=== PATIENT | female | born 1940 | race Caucasian/White ===

== ENCOUNTER → 2017-06-18 | Outpatient (CLI) | payer MEDICARE, OTHER ==
[~2017-06-18] MED LIST: CELE200; Dyazide 37.5-21 EACH PO; HYDPAM25 PO; LEVSOD50 PO; MECL25 PO; NAPR500 PO
== END | disposition home or self-care (01) ==
LOC: LAB SHORT 10:06 → PLD 10:06
DX: C44.41 Basal cell carcinoma of skin of scalp and neck (principal)
CPT/HCPCS: 88305

== ENCOUNTER 2017-06-26 06:19 | Observation (INO) | payer MEDICARE, OTHER ==
[~2017-06-26] VITALS: Ht 157.5 cm; Wt 60.2 kg
[~2017-06-26 06:19] MED LIST changes: -Dyazide 37.5-21 EACH PO; -HYDPAM25 PO; -LEVSOD50 PO; -NAPR500 PO
[2017-06-26] MEDS ORDERED: LEVSOD50 PO (06:48)
[2017-06-26] MEDS ORDERED: NAPR500 PO (06:49)
[2017-06-26] MEDS ORDERED: HYDPAM25 PO (06:49)
[2017-06-26 06:53] LABS: Source, Urine Clean Catch
[2017-06-26 07:02] LABS: BASOPHILS ABSOLUTE AUTO 0.01 K/mm3 (0.00-0.23); BASOPHILS PERCENT AUTO 0 % (0-2); EOSINOPHILS ABSOLUTE AUTO 0.01 K/mm3 (0.00-0.68); EOSINOPHILS PERCENT AUTO 0 % (0-6); Hematocrit 40.2 % (33.0-51.0); IMMATURE GRAN ABSOLUTE AUTO 0.01 K/mm3 (0.00-0.10); IMMATURE GRAN PERCENT AUTO 0 % (0-1); LYMPHOCYTES ABSOLUTE AUTO 1.49 K/mm3 (0.84-5.20); LYMPHOCYTES PERCENT AUTO 20 % (21-46); MONOCYTES ABSOLUTE AUTO 0.28 K/mm3 (0.16-1.47); MONOCYTES PERCENT AUTO 4 % (4-13); Mean Corpuscular HGB 27.5 pg (26.0-34.0); Mean Corpuscular HGB Conc 32.3 g/dL (31.5-36.5); Mean Corpuscular Volume 85 fL (80-100); Mean Platelet Volume 9.6 fL (9.1-12.4); NEUTROPHILS ABSOLUTE AUTO 5.76 K/mm3 (1.96-9.15); NEUTROPHILS PERCENT AUTO 76 % (41-73); Platelet Count 186 K/mm3 (150-400); RDW Coefficient Variation 13.7 % (11.7-14.2); RDW Standard Deviation 42.9 fL (35.1-46.3); Red Blood Cell Count 4.73 M/mm3 (3.80-5.20); White Blood Cell Count 7.56 K/mm3 (4.00-11.30)
[2017-06-26 07:11] LABS: Bilirubin, Urine Neg (Neg); Blood, Urine 3+ (Neg); Glucose Qualitative, Urine Neg (Neg); Ketones, Urine 1+ (Neg); Leukocyte Esterase, Urine 2+ (Neg); Nitrite, Urine Neg (Neg); Protein, Urine 1+ (Neg); Specific Gravity, Urine 1.025 (1.003-1.022); Urobilinogen, Urine NORM (Normal)
[2017-06-26 07:26] LABS: Albumin, Blood 3.1 g/dL (3.4-5.0); Albumin/Globulin Ratio 0.8 (0.8-1.8); Bilirubin, Total 1.1 mg/dL (0.1-1.0); Bun/Creatinine Ratio 14.6 (12.0-20.0); Calcium, Blood 8.4 mg/dL (8.5-10.1); Creatinine, Blood 0.96 mg/dL (0.40-1.00); Potassium, Blood 3.7 mmol/L (3.5-5.5); Total Protein, Blood 7.1 g/dL (6.4-8.2)
[2017-06-26 07:29] LABS: Appearance, Urine Hazy (Clear); Color, Urine Yellow (P-Yellow); Hyaline Casts 0-2 /lpf (0-2); Mucus Light (0-Heavy)
[2017-06-26 07:30] LABS: Bacteria Few /hpf; Red Blood Cells, Urine 0-2 /hpf (0-2)
[2017-06-26 07:30] LABS: Thyroid Stimulating Hormone 1.05 uIU/mL (0.360-4.800)
[2017-06-26 07:36] LABS: Squamous Epithelial Cells Few /hpf (Few)
[2017-06-26 07:37] LABS: Transitional Epithelial Cells Rare /hpf (0-Rare)
[2017-06-26] MEDS ORDERED: Dyazide 37.5-21 EACH PO (09:36)
[2017-06-27] MEDS ORDERED: METR500 PO (12:31)
[2017-06-27] MEDS ORDERED: CIPR500 PO (12:31)
[2017-06-27] MEDS ORDERED: Percocet 5-3251 EACH PO (12:32)
== END 2017-06-27 13:45 | disposition home or self-care (01) ==
LOC: ER 06:19 → SURS 06:20
PROVIDERS: Emergency Medicine; Surgery
PROC: 0DTJ4ZZ Resection of Appendix, Percutaneous Endoscopic Approach (ICD-10-PCS; principal; 2017-06-26 12:00)
DX: K35.80 Unspecified acute appendicitis (principal); E03.9 Hypothyroidism, unspecified; H81.09 Meniere's disease, unspecified ear; Z88.0 Allergy status to penicillin; Z79.899 Other long term (current) drug therapy
CPT/HCPCS: 36415; 71045; 74176; 80053; 81001; 83690; 84443; 85025; 87086; 88304; 93005; 93010; 96361; 96365; 96366; 96375; 96376; 99285; G0378; J0697; J1885; J2250; J2405; J2710; J3010; J7030; J7120

== ENCOUNTER → 2018-04-13 | Outpatient (CLI) | payer MEDICARE, OTHER ==
[~2018-04-13] MED LIST changes: +CIPR500 PO; +Dyazide 37.5-21 EACH PO; +HYDPAM25 PO; +LEVSOD50 PO; +METR500 PO; +NAPR500 PO; +Percocet 5-3251 EACH PO
== END | disposition home or self-care (01) ==
LOC: PLD 10:57 → LAB SHORT 10:57
DX: C44.41 Basal cell carcinoma of skin of scalp and neck (principal)
CPT/HCPCS: 88305

== ENCOUNTER → 2018-09-28 | Outpatient (CLI) | payer MEDICARE, OTHER ==
[2018-09-28 13:07] LABS: Stool Occult Bld Immuno 1 Negative (NEGATIVE); Stool Occult Bld Immuno 2 Negative (NEGATIVE)
== END | disposition home or self-care (01) ==
LOC: LAB SHORT 11:09 → LAB 11:09 → LAB FUT 09-17 09:00
PROVIDERS: Internal Medicine Gastroenterology
DX: K57.30 Diverticulosis of large intestine without perforation or abscess without bleeding (principal); Z86.010 Personal history of colon polyps
CPT/HCPCS: 82274

== ENCOUNTER 2019-07-18 12:31 | Day surgery (SDC) | payer MEDICARE, OTHER ==
[~2019-07-18] VITALS: Ht 152.4 cm; Wt 59.0 kg
[~2019-07-18 12:31] MED LIST changes: +ANTACID ULTRA1177 MG PO; +BIOTIN1 MG; +DYAZIDE 37.5-21 EACH PO; +EYE VITAMIN; +FLAX PO; +LEVSOD75 PO; +Natrol Alpha 3300 MG PO; +RALO60 PO; +TURMERIC; +VITAMIN D350 MCG
== END 2019-07-18 14:45 | disposition home or self-care (01) ==
LOC: ORSCSDS 12:31
PROVIDERS: Internal Medicine Gastroenterology
PROC: 0DJD8ZZ Inspection of Lower Intestinal Tract, Via Natural or Artificial Opening Endoscopic (ICD-10-PCS; principal; 2019-07-18 13:45)
DX: Z12.11 Encounter for screening for malignant neoplasm of colon (principal); Z86.010 Personal history of colon polyps; K57.30 Diverticulosis of large intestine without perforation or abscess without bleeding; I10 Essential (primary) hypertension; E78.5 Hyperlipidemia, unspecified; E03.9 Hypothyroidism, unspecified; Z79.899 Other long term (current) drug therapy
CPT/HCPCS: J2704; J7120

== ENCOUNTER 2021-07-30 12:01 | Day surgery (SDC) | payer MEDICARE, OTHER ==
[~2021-07-30] VITALS: Ht 152.4 cm; Wt 58.6 kg
--- NOTE | 2021-07-30 12:45 | NUR ---
07/30/21 1245 Katie Dalal CALL LIGHT WITHIN REACH. [place] AT 1241 PLEBRYAN AT 1244 IN THE LEFT EYE
== END 2021-07-30 14:29 | disposition home or self-care (01) ==
LOC: ORSCSDS 12:01
PROVIDERS: Ophthalmology
PROC: 08RK3JZ Replacement of Left Lens with Synthetic Substitute, Percutaneous Approach (ICD-10-PCS; principal; 2021-07-30 13:30)
DX: H25.13 Age-related nuclear cataract, bilateral (principal); H40.1122 Primary open-angle glaucoma, left eye, moderate stage; E03.9 Hypothyroidism, unspecified; I10 Essential (primary) hypertension; F41.9 Anxiety disorder, unspecified; H81.09 Meniere's disease, unspecified ear; Z79.899 Other long term (current) drug therapy
CPT/HCPCS: J2250; J3010; J3301; J7040; V2632

== ENCOUNTER 2021-08-15 07:21 | Day surgery (SDC) | payer MEDICARE, OTHER ==
[~2021-08-15] VITALS: Ht 152.4 cm; Wt 57.9 kg
[2021-08-15] MEDS ORDERED: TIMDOROPSO (07:51)
[2021-08-15] MEDS ORDERED: LATA.005SO (07:52)
== END 2021-08-15 09:33 | disposition home or self-care (01) ==
LOC: ORSCSDS 07:21
PROVIDERS: Ophthalmology
PROC: 08RJ3JZ Replacement of Right Lens with Synthetic Substitute, Percutaneous Approach (ICD-10-PCS; principal; 2021-08-15 14:00)
PROC: 08923ZZ Drainage of Right Anterior Chamber, Percutaneous Approach (ICD-10-PCS; principal; 2021-08-15 14:00)
DX: H25.11 Age-related nuclear cataract, right eye (principal); H40.1112 Primary open-angle glaucoma, right eye, moderate stage; I10 Essential (primary) hypertension; E03.9 Hypothyroidism, unspecified; Z79.899 Other long term (current) drug therapy
CPT/HCPCS: J2001; J2250; J3301; J7040; V2632